=== PATIENT | female | born 1955 | race Caucasian/White ===

== ENCOUNTER 2017-07-21 07:29 | Inpatient (IN) | payer BC ==
[2017-07-21] VITALS (11 sets, daily range): BP systolic 119–174; BP diastolic 65–82; PULSE 54–76; RESP 15–18; TEMP 97.3–98.1; O2SAT 95–100
[~2017-07-21] VITALS: Ht 177.8 cm; Wt 100.9 kg
[2017-07-21] MEDS ORDERED: SODIUM CHLOR 0.9% 1000 ML INJ 1,000 ML IV ONE (07:41)
--- NOTE | 2017-07-21 07:50 | PD ---
HPI Chief Complaint: Neuro Symptoms/ Deficits Time Seen by Provider: 07:38 Travel History International Travel<30 days: No Contact w/Intl Traveler<30days: No Traveled to known affect area: No History of Present Illness HPI 62 y/o female presents stating at 5 AM this morning she woke up with a mild headache and then at 6:30 AM she developed heaviness to her right hand and difficulty with movement of that arm. She states she also feels like she is having a funny feeling in her throat feels weird when she swallows. She states that her symptoms are improving and now she just has a feeling in her arm and her throat but the movement portion has improved. Her gave her aspirin prior to arrival. She denies prior history of this. Quality is heavy. Location is right arm and throat. She denies specific modifying factors. Duration is a little over an hour. She denies any other concurrent complaints. [facility] Past Medical History High Cholesterol: Yes Past Surgical History Surgical History: No Previous Surgery Social History Tobacco Use: No Allergies-Medications (Allergen,Severity, Reaction): Coded Allergies: codeine (Verified Allergy, Unknown, 07/21/17) Reported Meds & Prescriptions Reported Meds & Active Scripts Active Reported Simvastatin 20 Mg Tab 20 Mg PO DAILY [Premarin Patch] Review of Systems Except as stated in HPI: all other systems reviewed are Neg Physical Exam Narrative GENERAL: 62-year-old female in no apparent distress SKIN: Focused skin assessment warm/dry. HEAD: Atraumatic. Normocephalic. EYES: Pupils equal and round. No scleral icterus. No injection or drainage. ENT: No nasal bleeding or discharge. Mucous membranes pink and moist. NECK: Trachea midline. CARDIOVASCULAR: Regular rate and rhythm. No murmur appreciated. RESPIRATORY: No accessory muscle use. Clear to auscultation. Breath sounds equal bilaterally. GASTROINTESTINAL: Abdomen soft, non-tender, nondistended. MUSCULOSKELETAL: No obvious deformities. No clubbing. No cyanosis. NEUROLOGICAL: Awake and alert. No obvious cranial nerve deficits. Mild decreased grasp on the right otherwise nonfocal exam. Normal speech. No pronator drift, no facial droop PSYCHIATRIC: Appropriate mood and affect; insight and judgment normal. Data Data Last Documented VS Vital Signs Date Time Temp Pulse Resp B/P (MAP) Pulse Ox O2 Delivery O2 Flow Rate FiO2 07/21/17 08:44 68 18 147/82 (103) 100 Room Air 07/21/17 07:32 97.3 Orders Orders Activity Bed Rest (07/21/17 ) Electrocardiogram (07/21/17 ) Prothrombin Time / Inr (Pt) (07/21/17 07:41) Act Partial Throm Time (Ptt) (07/21/17 07:41) Complete Blood Count With Diff (07/21/17 07:41) Fibrinogen (07/21/17 07:41) Creatine Kinase (Cpk) (07/21/17 07:41) Troponin I (07/21/17 07:41) Ua Includes Microscopic (07/21/17 07:41) Type And Screen (07/21/17 07:41) Ct Brain W/O Iv Contrast(Rout) (07/21/17 ) Chest, Single Ap (07/21/17 ) Blood Glucose (07/21/17 07:41) Ecg Monitoring (07/21/17 07:41) Nursing Bedside Swallow Assess .ONCE (07/21/17 07:41) Iv Access Insert/Monitor (07/21/17 07:41) NPO (07/21/17 07:41) Sodium Chlor 0.9% 1000 Ml Inj (Ns 1000 M (07/21/17 07:41) Comprehensive Metabolic Panel (07/21/17 07:41) I-Stat Profile (07/21/17 07:44) Cta Brain W Iv Contrast W 3d (07/21/17 07:44) Cta Neck W Iv Contrast W 3d (07/21/17 07:44) Iodixanol 320 Inj (Rad Ct) (Visipaque 32 (07/21/17 08:22) Admit Order (Ed Use Only) (07/21/17 09:13) Labs Laboratory Tests Test 07/21/17 07:48 07/21/17 08:37 White Blood Count 7.4 TH/MM3 Red Blood Count 5.09 MIL/MM3 Hemoglobin 15.1 GM/DL Bedside Hemoglobin 15.6 G/DL Hematocrit 45.3 % Bedside Hematocrit 46.0 % Mean Corpuscular Volume 89.0 FL Mean Corpuscular Hemoglobin 29.6 PG Mean Corpuscular Hemoglobin Concent 33.3 % Red Cell Distribution Width 13.9 % Platelet Count 222 TH/MM3 Mean Platelet Volume 9.7 FL Neutrophils (%) (Auto) 57.5 % Lymphocytes (%) (Auto) 32.1 % Monocytes (%) (Auto) 8.2 % Eosinophils (%) (Auto) 1.7 % Basophils (%) (Auto) 0.5 % Neutrophils # (Auto) 4.2 TH/MM3 Lymphocytes # (Auto) 2.4 TH/MM3 Monocytes # (Auto) 0.6 TH/MM3 Eosinophils # (Auto) 0.1 TH/MM3 Basophils # (Auto) 0.0 TH/MM3 CBC Comment DIFF FINAL Differential Comment Prothrombin Time 10.4 SEC Prothromb Time International Ratio 1.0 RATIO Activated Partial Thromboplast Time 25.1 SEC Fibrinogen 303 mg/dL Bedside Sodium 139 MMOL/L Blood Urea Nitrogen 11 MG/DL Creatinine 0.81 MG/DL Random Glucose 115 MG/DL Total Protein 7.3 GM/DL Albumin 3.8 GM/DL Calcium Level 8.7 MG/DL Alkaline Phosphatase 91 U/L Aspartate Amino Transf (AST/SGOT) 28 U/L Alanine Aminotransferase (ALT/SGPT) 38 U/L Total Bilirubin 0.9 MG/DL Sodium Level 140 MEQ/L Potassium Level 3.6 MEQ/L Chloride Level 107 MEQ/L Carbon Dioxide Level 25.5 MEQ/L Bedside Potassium 3.6 MMOL/L Bedside Chloride 102 MMOL/L Anion Gap 8 MEQ/L Bedside Blood Urea Nitrogen 12 MG/DL Bedside Creatinine 0.7 MG/DL Estimat Glomerular Filtration Rate 72 ML/MIN Bedside Glucose 118 MG/DL Total Creatine Kinase 135 U/L Troponin I LESS THAN 0.02 NG/ML Urine Color LIGHT-YELLOW Urine Turbidity CLEAR Urine pH 8.0 Urine Specific [place] 1.022 Urine Protein NEG mg/dL Urine Glucose (UA) NEG mg/dL Urine Ketones NEG mg/dL Urine Occult Blood NEG Urine Nitrite NEG Urine Bilirubin NEG Urine Urobilinogen LESS THAN 2.0 MG/DL Urine Leukocyte Esterase NEG Urine WBC LESS THAN 1 /hpf Urine Squamous Epithelial Cells <1 /hpf MDM Medical Decision Making Medical Screen Exam Complete: Yes Emergency Medical Condition: Yes Medical Record Reviewed: Yes (Past history confirmed) Interpretation(s) CBC & BMP Diagram 07/21/17 07:48 Total Protein 7.3, Albumin 3.8, Calcium Level 8.7, Alkaline Phosphatase 91, Aspartate Amino Transf (AST/SGOT) 28, Alanine Aminotransferase (ALT/SGPT) 38, Total Bilirubin 0.9 Last 24 hours Impressions Neck CTA 07/21/1744 Signed Impressions: Service Date/Time: July 07:50 - CONCLUSION: Negative exam. Arch and cervical vessels are patent throughout. No significant atherosclerotic disease. Salvador Nobles MD Head CTA 07/21/1744 Signed Impressions: Service Date/Time: July 07:50 - CONCLUSION: 1. Unremarkable CT angiography of the brain. Michelet Cavazos MD Head CT 07/21/17 0000 Signed Impressions: Service Date/Time: July 07:50 - CONCLUSION: 1. No evidence of hemorrhage 2. Possible tiny ischemic infarct left parietal region Michelet Cavazos MD ADDENDUM: The findings were discussed with at 0800 Michelet Cavazos MD Chest X-Ray 07/21/17 0000 Signed Impressions: Service Date/Time: July 08:18 - CONCLUSION: Hypoinflation with no acute cardiopulmonary process. Salvador Nobles MD Differential Diagnosis Stroke, bleed, complex migraine, mass Narrative Course Will check stroke workup and discuss with neurology given window patient and family updated, already received aspirin, patient notes symptoms are continuing to improve, agrees to admit Physician Communication Physician Communication dr ledesma states given improvement of symptoms not candidate for TPA but would like stroke alert and CTAs to rule out large clot resident team agree to admit Diagnosis Primary Impression: Right hand weakness Admitting Information Admitting Physician Requests: Admit Karen Salas MD Jul 21, 2017 07:50
[2017-07-21] MEDS ORDERED: PREMARIN PATCH (08:01)
[2017-07-21] MEDS ORDERED: ATOR20TA15 PO (08:01)
[2017-07-21 08:03] LABS: AUTOMATED NEUTROPHIL # 4.2 TH/MM3 (1.8-7.7); BASOPHIL % 0.5 % (0.0-2.0); EOSINOPHIL # 0.1 TH/MM3 (0-0.4); EOSINOPHIL % 1.7 % (0.0-4.0); HEMATOCRIT 45.3 % (35.0-46.0); HEMOGLOBIN 15.1 GM/DL (11.6-15.3); LYMPH % 32.1 % (9.0-44.0); LYMPHOCYTE # 2.4 TH/MM3 (1.0-4.8); MEAN CORPUSCULAR HEMOGLOBIN 29.6 PG (27.0-34.0); MEAN CORPUSCULAR HGB CONC 33.3 % (32.0-36.0); MEAN PLATELET VOLUME 9.7 FL (7.0-11.0); MONO % 8.2 % (0.0-8.0); MONOCYTE # 0.6 TH/MM3 (0-0.9); NEUT % 57.5 % (16.0-70.0); PLATELET COUNT 222 TH/MM3 (150-450); RED BLOOD COUNT 5.09 MIL/MM3 (4.00-5.30); RED CELL DISTRIBUTION WIDTH 13.9 % (11.6-17.2); WHITE BLOOD COUNT 7.4 TH/MM3 (4.0-11.0)
--- NOTE | 2017-07-21 08:05 | RADRPT ---
EXAM DATE/TIME: 07/21/2017 07:50 This report includes an Addendum and supersedes previous reports for this exam. [facility] COMPARISON: No previous studies available for comparison. INDICATIONS : Stroke alert, right upper extremity weakness RADIATION DOSE: 56.35 CTDIvol (mGy) MEDICAL HISTORY : None SURGICAL HISTORY : None. ENCOUNTER: Initial ACUITY: 1 day PAIN SCALE: 0/10 LOCATION: cranial TECHNIQUE: Multiple contiguous axial images were obtained of the head. Using automated exposure control and adj ustment of the mA and/or kV according to patient size, radiation dose was kept as low as reasonably a chievable to obtain optimal diagnostic quality images. DICOM format image data is available electro nically for review and comparison. FINDINGS: There is no evidence of acute hemorrhage, mass effect or midline shift. There is a typical tiny area of infarct measuring less than 10 mm in diameter in the left parietal region. Posterior fossa structu res are unremarkable. Bone windows are unremarkable. CONCLUSION: 1. No evidence of hemorrhage 2. Possible tiny ischemic infarct left parietal region Michelet Cavazos MD on July 21, 2017 at 7:59 Board Certified Radiologist. This report was verified electronically. ADDENDUM: The findings were discussed with at 0800 Michelet Cavazos MD on July 21, 2017 at 8:06 Board Certified Radiologist. This report was verified electronically.
[2017-07-21] MEDS ORDERED: SIMV20TA PO (08:08)
[2017-07-21 08:16] LABS: PROTHROMBIN TIME - PATIENT 10.4 SEC (9.8-11.6)
[2017-07-21] MEDS ORDERED: IODIXANOL 320 MG/ML 10 ML VIAL (for Rad CT) IVCONTRAST ONE (08:22)
[2017-07-21 08:26] LABS: ALBUMIN 3.8 GM/DL (3.4-5.0); ALKALINE PHOSPHATASE 91 U/L (45-117); ALT (GPT) 38 U/L (10-53); AST (GOT) 28 U/L (15-37); BICARBONATE 25.5 MEQ/L (21.0-32.0); BLOOD UREA NITROGEN 11 MG/DL (7-18); CALCIUM 8.7 MG/DL (8.5-10.1); CHLORIDE 107 MEQ/L (98-107); CREATININE 0.81 MG/DL (0.50-1.00); GLOMERULAR FILTRATION RATE 72 ML/MIN (>89); GLUCOSE,RANDOM 115 MG/DL (74-106); SODIUM (NA) 140 MEQ/L (136-145); TOTAL BILIRUBIN ADULT 0.9 MG/DL (0.2-1.0); TOTAL PROTEIN 7.3 GM/DL (6.4-8.2); TROPONIN I LESS THAN 0.02 NG/ML (0.02-0.05)
--- NOTE | 2017-07-21 08:36 | RADRPT ---
EXAM DATE/TIME: 07/21/2017 08:18 [facility] COMPARISON: No previous studies available for comparison. INDICATIONS : Stroke alert. MEDICAL HISTORY : None. SURGICAL HISTORY : None. ENCOUNTER: Initial ACUITY: 1 day PAIN SCORE: 0/10 LOCATION: Bilateral chest FINDINGS: A single view of the chest demonstrates the lungs to be symmetrically hypoaerated without evidence of mass, infiltrate or effusion. Accounting for low lung volumes, heart size is upper limits of normal. Osseous structures are intact. CONCLUSION: Hypoinflation with no acute cardiopulmonary process. Salvador Nobles MD on July 21, 2017 at 8:32 Board Certified Radiologist. This report was verified electronically.
--- NOTE | 2017-07-21 08:38 | RADRPT ---
EXAM DATE/TIME: 07/21/2017 07:50 [facility] COMPARISON: No previous studies available for comparison. INDICATIONS : Stroke alert, right upper extremity weakness IV CONTRAST: 80 cc Visipaque (iodixanol) IV RADIATION DOSE: 9.75 CTDIvol (mGy) MEDICAL HISTORY : None SURGICAL HISTORY : None. ENCOUNTER: Initial ACUITY: 1 day PAIN SCALE: 0/10 LOCATION: cranial TECHNIQUE: Volumetric scanning was performed using a multi-row detector CT scanner. The data was post processed with a variety of visualization algorithms including full volume maximum intensity projection, multi -planar sliding thin slab reformation, curved planar reformation, and surface rendering techniques. Using automated exposure control and adjustment of the mA and/or kV according to patient size, radiat ion dose was kept as low as reasonably achievable to obtain optimal diagnostic quality images. DICO M format image data is available electronically for review and comparison. FINDINGS: There is excellent visualization of the major intracranial arteries out to the second-order branch ve ssels. There is no evidence for aneurysm, vessel truncation or stenosis, and no evidence for vascula r malformation. Examination of posterior fossa also demonstrates no evidence of aneurysm or vascular malformation. Th e vertebral arteries are codominant. CONCLUSION: 1. Unremarkable CT angiography of the brain. Michelet Cavazos MD on July 21, 2017 at 8:30 Board Certified Radiologist. This report was verified electronically.
--- NOTE | 2017-07-21 08:40 | RADRPT ---
EXAM DATE/TIME: 07/21/2017 07:50 [facility] COMPARISON: No previous studies available for comparison. INDICATIONS : Stroke alert, right sided weakness IV CONTRAST: 80 cc Visipaque (iodixanol) IV ; Cumulative dose for multiple exams. RADIATION DOSE: 9.75 CTDIvol (mGy) MEDICAL HISTORY : None SURGICAL HISTORY : None. ENCOUNTER: Initial ACUITY: 1 day PAIN SCALE: 0/10 LOCATION: cranial Elevated flow velocities and ICA/CCA ratios have been found to correlate with increased degrees of vessel stenosis, calculated as percentage of diameter relative to a normal segment of distal ICA/CCA. TECHNIQUE: Volumetric scanning was performed using a multirow detector CT scanner. The data was post processed with a variety of visualization algorithms including full-volume maximum intensity projection, multip lanar sliding thin-slab reformation, curved-planar reformation, and surface-rendering techniques. Us ing automated exposure control and adjustment of the mA and/or kV according to patient size, radiatio n dose was kept as low as reasonably achievable to obtain optimal diagnostic quality images. DICOM f ormat image data is available electronically for review and comparison. FINDINGS: AORTIC ARCH: There is a three-vessel origin of the great vessels from the aorta. No evidence of ostial narrowing. RIGHT CAROTID: The common carotid artery is intact. The carotid bulb has a normal configuration without ulceration o r narrowing. The internal carotid artery lumen is smooth without stenosis. The external carotid kalina ry is intact. LEFT CAROTID: The common carotid artery is intact. The carotid bulb has a normal configuration without ulceration or narrowing. The internal carotid artery lumen is smooth without stenosis. The external carotid ar radha is intact. VERTEBRALS: The vertebral arteries have a symmetric diameter. No stenotic lesions are seen. CONCLUSION: Negative exam. Arch and cervical vessels are patent throughout. No significant atherosclerotic disease. Salvador Nobles MD on July 21, 2017 at 8:36 Board Certified Radiologist. This report was verified electronically.
[2017-07-21 08:57] LABS: BILIRUBIN, URINE NEG (NEG); BLOOD, URINE NEG (NEG); GLUCOSE,URINE NEG (NEG); KETONE, URINE NEG (NEG); NITRITE,URINE NEG (NEG); SQUAMOUS EPITHELIAL CELL URINE <1 /hpf (0-5); URINE COLOR LIGHT-YELLOW (YELLW/STRAW); URINE LEUKOCYTE ESTERASE NEG (NEG)
--- NOTE | 2017-07-21 09:28 | HHI.HP ---
[facility] Service Family Medicine Primary Care Physician Monica Jiang M.D. Admission Diagnosis right arm numbness Diagnoses: International Travel<30 Days: No Contact w/Intl Traveler<30days: No Known Affected Area: No History of Present Illness Patient is a 62 year old female who presents to the ED for evaluation of right- sided upper extremity weakness. Patient reports waking up with a mild right- sided frontal headache around 6 a.m. on 07/21. The headache subsided without intervention. Around 6:30 a.m., the patient was getting ready for work when she noticed that her right arm felt "funny" while applying her make-up. She quickly lost function in her right arm, which felt heavy. At that time, her noted slurred speech and the patient remembers having a hard time moving her mouth. She also felt like her throat started "closing in." The patient's noticed a right-sided facial droop and his 's inability to touch finger to nose. She took two 325mg aspirin and was taken to the ED. Since arriving to the ED, she denies headache and says that her arm feels better. She reports "more feeling" in her arm. She however continues to complain of something in her throat. While the right-side of her tongue is tingling, her speech has returned to normal. Of note, patient denies head trauma or history of stroke. She suffers from menopausal hot flashes. She was treated with [place] patch but after taper has not been on the patch for one week. (Sue Theodore MD R1) Review of Systems Constitutional: COMPLAINS OF: Dizziness (this morning; resolved ), DENIES: Diaphoretic episodes, Fatigue, Fever, Weight gain, Weight loss, Chills Eyes: DENIES: Blurred vision, Diplopia, Vision loss, Double Vision Ears, nose, mouth, throat: COMPLAINS OF: Throat pain (right-side discomfort ), DENIES: Tinnitus, Hearing loss, Nasal discharge, Hoarseness, Running Nose Respiratory: COMPLAINS OF: Cough (over the last few days ), DENIES: Sputum production, Shortness of breath Cardiovascular: COMPLAINS OF: Lower Extremity Edema (swelling around ankles ( baseline)), DENIES: Chest pain, Palpitations, Syncope Gastrointestinal: DENIES: Abdominal pain, Black stools, Bloody stools, Constipation, Diarrhea, Nausea, Vomiting Genitourinary: DENIES: Urinary frequency, Urinary incontinence, Urgency Musculoskeletal: COMPLAINS OF: Joint pain (lower extremity (baseline)), DENIES : Back pain, Neck pain Integumentary: DENIES: Rash, Nail changes Hematologic/lymphatic: COMPLAINS OF: Bruising (easy (baseline)) Neurologic: COMPLAINS OF: Headache, Localized weakness (right arm ), Paresthesias (right hand ), DENIES: Seizures Psychiatric: COMPLAINS OF: Anxiety, Depression (Sue Theodore MD R1) Past Family Social History Past Medical History Anxiety Depression Hyperlipidemia History of low blood pressure and bradycardia - not being followed Past Surgical History Breast biopsies x2 Removal of cysts on ovaries Endometrial ablation Reported Medications Flonase Nasal [place] (Fluticasone Nasal Liberty) 50 Mcg/Act [place] 50 Mcg EACH NARE DAILY Simvastatin 20 Mg Tab 20 Mg PO DAILY (Sue Theodore MD R1) Allergies: Coded Allergies: codeine (Verified Allergy, Unknown, 07/21/17) Active Ordered Medications Current Medications Medications (Trade) Dose Ordered Sig/Kevin Route Start Time Stop Time Status Last Admin Sodium Chloride 1,000 ml @ 70 mls/hr [id number] ONCE IV 07/21/17 07:41 07/21/17 21:58 07/21/17 08:21 (Pravachol) 40 mg HS PO 07/21/17 21:00 (NS Flush) 2 ml BID IV FLUSH 07/21/17 10:30 (NS Flush) 2 ml UNSCH PRN IV FLUSH 07/21/17 10:30 Sodium Chloride 1,000 ml @ 70 mls/hr [id number] IV 07/21/17 10:29 (Vasotec Inj) 1.25 mg Q4H PRN IV PUSH 07/21/17 10:30 (Aspirin) 325 mg DAILY PO 07/21/17 10:30 07/21/17 12:16 (NovoLOG SUPPLEMENTAL SCALE) 1 ACHS SQ 07/21/17 12:00 (D50w (Vial) Inj) 50 ml UNSCH PRN IV PUSH 07/21/17 10:30 (Glucagon Inj) 1 mg UNSCH PRN OTHER 07/21/17 10:30 (Lovenox Inj) 40 mg Q24H SQ 07/21/17 10:30 07/21/17 12:16 (Zofran Inj) 4 mg Q6H PRN IV PUSH 07/21/17 15:00 07/21/17 14:33 Family History Mother - [place], AAA, HTN, DM Type II, carotid artery stenosis Father - Brain cancer Brother - [place] at 43 y/o Social History Lives with of 44 years. Alcohol: minimal. Tobacco: denies; never. Drug: denies; never. (Sue Theodore MD R1) Physical Exam Vital Signs Vital Signs Date Time Temp Pulse Resp B/P (MAP) Pulse Ox O2 Delivery O2 Flow Rate FiO2 07/21/17 08:44 68 18 147/82 (103) 100 Room Air 07/21/17 07:45 76 18 159/75 (103) 98 Room Air 07/21/17 07:42 73 18 97 Room Air 07/21/17 07:32 97.3 74 16 174/82 (112) 96 Physical Exam GENERAL: This is a well-nourished, well-developed patient, in no apparent distress. Patient laying with bed flat. SKIN: No rashes, ecchymoses or lesions. Warm and dry. HEAD/FACE: Atraumatic. Normocephalic. No temporal or scalp tenderness. Facial asymmetry noted with slight droop of right corner of lip. EYES: Pupils equal round and reactive. Extraocular motions intact. No scleral icterus. No injection or drainage. ENT: Nose without bleeding, purulent drainage or septal hematoma. Throat without erythema, tonsillar hypertrophy or exudate. Uvula midline. Airway patent. NECK: Trachea midline. No JVD or lymphadenopathy. Supple, nontender, no meningeal signs. CARDIOVASCULAR: Bradycardic with regular rhythm; no murmurs, gallops, or rubs. RESPIRATORY: Clear to auscultation anteriorly. No wheezes, rales, or rhonchi. GASTROINTESTINAL: Abdomen soft, non-tender, nondistended. No hepato-splenomegaly , or palpable masses. No guarding. MUSCULOSKELETAL: Extremities without clubbing, cyanosis, or edema. No joint tenderness, effusion, or edema noted. No calf tenderness. Negative Homans sign bilaterally. NEUROLOGICAL: Awake and alert. Cranial nerves II through XII intact except for facial droop noted above. Motor and sensory to light touch within normal limits. Five out of 5 muscle strength in all muscle groups. Cerebellar testing normal. Normal speech. Laboratory Laboratory Tests Test 07/21/17 07:48 07/21/17 08:37 White Blood Count 7.4 Red Blood Count 5.09 Hemoglobin 15.1 Bedside Hemoglobin 15.6 Hematocrit 45.3 Bedside Hematocrit 46.0 Mean Corpuscular Volume 89.0 Mean Corpuscular Hemoglobin 29.6 Mean Corpuscular Hemoglobin Concent 33.3 Red Cell Distribution Width 13.9 Platelet Count 222 Mean Platelet Volume 9.7 Neutrophils (%) (Auto) 57.5 Lymphocytes (%) (Auto) 32.1 Monocytes (%) (Auto) 8.2 Eosinophils (%) (Auto) 1.7 Basophils (%) (Auto) 0.5 Neutrophils # (Auto) 4.2 Lymphocytes # (Auto) 2.4 Monocytes # (Auto) 0.6 Eosinophils # (Auto) 0.1 Basophils # (Auto) 0.0 CBC Comment DIFF FINAL Differential Comment Prothrombin Time 10.4 Prothromb Time International Ratio 1.0 Activated Partial Thromboplast Time 25.1 Fibrinogen 303 Bedside Sodium 139 Blood Urea Nitrogen 11 Creatinine 0.81 Random Glucose 115 Total Protein 7.3 Albumin 3.8 Calcium Level 8.7 Alkaline Phosphatase 91 Aspartate Amino Transf (AST/SGOT) 28 Alanine Aminotransferase (ALT/SGPT) 38 Total Bilirubin 0.9 Sodium Level 140 Potassium Level 3.6 Chloride Level 107 Carbon Dioxide Level 25.5 Bedside Potassium 3.6 Bedside Chloride 102 Anion Gap 8 Bedside Blood Urea Nitrogen 12 Bedside Creatinine 0.7 Estimat Glomerular Filtration Rate 72 Bedside Glucose 118 Total Creatine Kinase 135 Troponin I LESS THAN 0.02 Urine Color LIGHT-YELLOW Urine Turbidity CLEAR Urine pH 8.0 Urine Specific Hematite 1.022 Urine Protein NEG Urine Glucose (UA) NEG Urine Ketones NEG Urine Occult Blood NEG Urine Nitrite NEG Urine Bilirubin NEG Urine Urobilinogen LESS THAN 2.0 Urine Leukocyte Esterase NEG Urine WBC LESS THAN 1 Urine Squamous Epithelial Cells <1 (Sue Theodore MD R1) Result Diagram: 07/21/1748 07/21/17747 Imaging Last 72 hours Impressions Neck CTA 07/21/17743 Signed Impressions: Service Date/Time: July 07:50 - CONCLUSION: Negative exam. Arch and cervical vessels are patent throughout. No significant atherosclerotic disease. Salvador Nobles MD Head CTA 07/21/1744 Signed Impressions: Service Date/Time: July 07:50 - CONCLUSION: 1. Unremarkable CT angiography of the brain. Michelet Cavazos MD Head CT 07/21/17 Signed Impressions: Service Date/Time: July 07:50 - CONCLUSION: 1. No evidence of hemorrhage 2. Possible tiny ischemic infarct left parietal region Michelet Cavazos MD ADDENDUM: The findings were discussed with at 0800 Michelet Cavazos MD Chest X-Ray 07/21/17 Signed Impressions: Service Date/Time: July 08:18 - CONCLUSION: Hypoinflation with no acute cardiopulmonary process. Salvador Nobles MD Brain MRI 07/21/17 Signed Impressions: Service Date/Time: July 17:44 - CONCLUSION: 1. Tiny subcentimeter acute to subacute infarct in the left periventricular white matter. Augusto Lundy MD (Sue Theodore MD R1) Caprini VTE Risk Assessment Caprini VTE Risk Assessment: Mod/High Risk (score >= 2) Caprini Risk Assessment Model Point Value = 1 Point Value = 2 Point Value = 3 Point Value = 5 Age 41-60 Minor surgery BMI > 25 kg/m2 Swollen legs Varicose veins or History of unexplained or recurrent spontaneous Oral contraceptives or hormone replacement Sepsis (< 1 month) Serious lung disease, including pneumonia (< 1 month) Abnormal pulmonary function Acute myocardial infarction Congestive heart failure (< 1 month) History of inflammatory bowel disease Medical patient at bed rest Age 61-74 Arthroscopic surgery Major open surgery (> 45 min) Laparoscopic surgery (> 45 min) Malignancy Confined to bed (> 72 hours) Immobilizing plaster cast Central venous access Age >= 75 History of VTE Family history of VTE Factor V Leiden Prothrombin [id number] Lupus anticoagulant Anticardiolipin antibodies Elevated serum homocysteine Heparin-induced thrombocytopenia Other congenital or acquired thrombophilia Stroke (< 1 month) Elective arthroplasty Hip, pelvis, or leg fracture Acute spinal cord injury (< 1 month) Prophylaxis Regimen Total Risk Factor Score Risk Level Prophylaxis Regimen 0-1 Low Early ambulation 2 Moderate Order ONE of the following: *Sequential Compression Device (SCD) *Heparin 5000 units SQ BID 3-4 Higher Order ONE of the following medications: *Heparin 5000 units SQ TID *Enoxaparin/Lovenox 40 mg SQ daily (WT < 150 kg, CrCl > 30 mL/min) *Enoxaparin/Lovenox 30 mg SQ daily (WT < 150 kg, CrCl > 10-29 mL/min) *Enoxaparin/Lovenox 30 mg SQ BID (WT < 150 kg, CrCl > 30 mL/min) AND/OR *Sequential Compression Device (SCD) 5 or more Highest Order ONE of the following medications: *Heparin 5000 units SQ TID (Preferred with Epidurals) *Enoxaparin/Lovenox 40 mg SQ daily (WT < 150 kg, CrCl > 30 mL/min) *Enoxaparin/Lovenox 30 mg SQ daily (WT < 150 kg, CrCl > 10-29 mL/min) *Enoxaparin/Lovenox 30 mg SQ BID (WT < 150 kg, CrCl > 30 mL/min) AND *Sequential Compression Device (SCD) (Sue Theodore MD R1) Assessment and Plan Assessment and Plan Patient is a 62 year old female who presents to the ED for evaluation of right- sided upper extremity weakness. On admission, CT head reads possible tiny ischemic infarct left parietal region. Admitted for evaluation and management of TIA/Stroke. Code Status Full code. Discussed Condition With Drs. Sahu and Nicolette. (Sue Theodore MD R1) Attending Attestation Patient seen and examined, discussed with resident team. I agree with assessment and management as documented and discussed with me. The patient has been seen and examined. The chart and all resident notes have been reviewed. I agree that inpatient care is appropriate and that a two midnight stay is expected for the reasons documented in the resident history and physical. I have discussed this with the resident and certify the resident s order for inpatient admission. Pt is admitted for a small stroke. At the time of my exam, in the afternoon, right facial droop (mild) is noted. She feels her speech is back to normal. Sister at bedside confirms this. Continue head of bed flat, await studies (MRI, echo). Reviewed results of CT and CTAs. Discussed importance of stroke prevention with aspirin and chronic disease management. Additional diagnosis: Bradycardia: Asymptomatic. Will order holter monitor at discharge. 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 Clinical presentation correlates with CT head findings of possible ischemic infarct over parietal lobe. Symptoms resolved at time of admission encounter. Labs/Microbiology On admission: * WBC 7.4, Hgb 15.1, Hct 45.3, Plt Count 222. * Na 140, K 3.6. * Random glucose 115. * AST 28, ALT 38, Alk Phos 91. * Total Creatine Kinase 135. * CK-MB 1.6. Repeat 1.4. * Troponin x3 negative. * PT 10.4, INR 1.0, APTT 25.1, Fibrinogen 303. * UA: light-yellow, clear, pH 8, nitrite negative, leukocyte esterase negative. * Lipid panel pending. * Hemoglobin A1C pending. Imaging/Studies: * Chest X-ray: Hypoinflation with no acute cardiopulmonary process. * CT Brain: No evidence of hemorrhage. Possible tiny ischemic infarct left parietal region. * Head CTA: Unremarkable CT angiography of the brain. * Neck CTA: Negative exam. Arch and cervical vessels are patent throughout. No significant atherosclerotic disease. * Brain MRI: Tiny subcentimeter acute to subacute infarct in the left periventricular white matter. * EKG: SINUS BRADYCARDIA WITH SINUS ARRHYTHMIA BORDERLINE ECG. * EKG: WITH OCCASIONAL VENTRICULAR PREMATURE COMPLEXES BORDERLINE ECG. * Echo: * LEFT VENTRICLE: Normal left ventricular size and wall thickness. The left ventricular systolic function is normal with an estimated ejection fraction in the range of 60-65%. Normal wall motion. * RIGHT VENTRICLE: Normal right ventricular size and systolic function. * LEFT ATRIUM: The left atrial size is normal. * RIGHT ATRIUM: The right atrial size is normal. * ATRIAL SEPTUM: Normal atrial septal thickness without atrial level shunting by limited color Doppler interrogation. * AORTA: The aortic root and proximal ascending aorta are normal in size on limited imaging. * MITRAL VALVE: Mild bileaflet mitral valve prolapse. Trace mitral valve regurgitation. * AORTIC VALVE: Trileaflet aortic valve. No aortic valve stenosis or regurgitation. * TRICUSPID VALVE: Structurally normal tricuspid valve. There is mild tricuspid valve regurgitation. The estimated pulmonary arterial pressure is 36 mmHg. * PULMONARY VALVE: Trivial pulmonary valve regurgitation. * VESSELS: The inferior vena cava is normal in size. * PERICARDIUM; No pericardial effusion. Medications: * Continue home Pravastatin 40mg PO HS. * Aspirin 325mg PO daily. Orders: * Speech Swallow Eval - passed. * Heart Healthy Diet. * Bed rest with HOB flat for 12 hours. May elevate HOB 30 degrees for all meals to prevent aspiration. After 12 hours, OOB ad rod. * Consult Neurology. * Consult Stroke Navigator. * Consult PT. * Consult Case Management. (2) Hyperlipidemia ICD Codes: E78.5 - Hyperlipidemia, unspecified Status: Chronic Plan: Patient with history of hyperlipidemia. * See Plan for Ischemic stroke. (3) Fluid, Electrolyte, Nutrition, and Prophylaxis Status: Acute Plan: Fluid: * NS at 70 mls/hr. Electrolyte: * Monitor and replete as necessary. Nutrition: * Heart healthy diet. Prophylaxis: * SCDs. * Lovenox 40mg IV daily. (Sue Theodore MD R1) Sue Theodore MD R1 Jul 21, 2017 09:28 Savannah Sahu MD Jul 22, 2017 20:47
[2017-07-21] MEDS ORDERED: FLUT1SPR5 EACH NARE (09:48)
[2017-07-21] MEDS: SODIUM CHLOR 0.9% 1000 ML INJ 1,000 ML IV SCH ×2 (10:29→23:40)
[2017-07-21] MEDS ORDERED: GLUCAGON 1 MG/ML VIAL OTHER PRN (10:30)
[2017-07-21] MEDS: SODIUM CHLORIDE 0.9% FLUSH 10 ML FLUSH IV FLUSH SCH ×2 (10:30→21:54)
[2017-07-21] MEDS ORDERED: DEXTROSE 50% IN WATER 50 ML VIAL(D50) IV PUSH PRN (10:30)
[2017-07-21] MEDS ORDERED: SODIUM CHLORIDE 0.9% FLUSH 10 ML FLUSH IV FLUSH PRN (10:30)
[2017-07-21] MEDS ORDERED: ENALAPRILAT 1.25 MG/ML VIAL IV PUSH PRN (10:30)
[2017-07-21] MEDS: INSULIN ASPART SUPPLEMENTAL SCALE SQ SCH ×3 (12:00→21:00)
[2017-07-21] MEDS: ENOXAPARIN SODIUM 40 MG/0.4 ML SYRINGE SQ SCH (12:16)
[2017-07-21] MEDS: ASPIRIN 325 MG TAB PO SCH (12:16)
--- NOTE | 2017-07-21 13:26 | MB ---
cc: Laney Leo MD DATE: 07/21/2017 REASON FOR CONSULTATION: Stroke alert. HISTORY OF PRESENT ILLNESS: This is a pleasant 62-year-old woman with a chief complaint of sudden onset of headache, right-sided frontal at 5 a.m. and then later at 6:30. She was getting ready for work and had trouble putting makeup on. Her arm felt funny on the right side, heavy, some speech issues and may be felt a little bit in the leg. At 6:40 in the morning, she took 2 aspirins, came to the ED, arm felt better, just feels a little strange still. The tongue and speech normalized. Hence, due to her symptoms rapidly improving, she was not a candidate for TPA. She is currently in room 1535. She feels a little nauseated, but otherwise no new complaints. PAST MEDICAL HISTORY: Anxiety, depression, hyperlipidemia, history of low blood pressure and bradycardia. PAST SURGICAL HISTORY: Cyst removal ovaries, breast biopsies x 2, endometrial ablation. ALLERGIES: CODEINE. FAMILY HISTORY: Mother had [place], AAA, hypertension, diabetes, carotid stenosis. Father had brain cancer. Brother [place] at 43. SOCIAL HISTORY: She lives with her . Minimal alcohol. No tobacco. No drugs. PHYSICAL EXAM: VITAL SIGNS: Temperature is 97.9, pulse 54, respiratory rate 18, blood pressure 139/81, saturating at 96 percent on room air. NECK: Supple, no bruits. HEART: Regular. NEUROLOGIC: She is awake and alert. She is oriented and fluent. Pupils reactive. Visual gaona full. Face symmetrical. Tongue midline. Motor raza, there is no drift, no leg lag. Cerebellar testing normal. DTRs are 1+. Sensory seems to be intact to light touch, temperature and pain. Toes, withdraws. Cerebellar, normal. Gait is withheld. LABORATORY DATA: Reviewed. Her CBC is really unremarkable. The coag panel was normal. Chemistries: Glucose 115-118. Cardiac enzymes normal. Urine unremarkable. IMAGING: Head CTA unremarkable. Neck CTA negative for any disease. CT brain, no evidence of any hemorrhage, possible small infarct, left parietal region. Chest x-ray, hypoinflation. IMPRESSION: Stroke versus transient ischemic attack in a previously fairly healthy 62-year-old woman. Questionable bradycardia. RECOMMENDATIONS: Recommend getting an MRI of the brain with 2-D echo, hemoglobin A1c, fasting lipid panel, start her on aspirin therapy full dose 325 mg. She was placed on a statin as well 40 mg. PT, OT, speech therapy evaluation. Permissible hypertension. Increase her head of bed tomorrow morning as tolerated. Keep her flat except for meals today. If her workup is negative and she is back to baseline, recommend discharge with followup with neurology. She may benefit from having a prolonged Holter event monitor to monitor this bradycardia since she has not been followed by cardiology. Continue Lovenox for DVT prophylaxis as well as SCDs. Laney Leo MD DF/DL , 01:00 PM , 01:25 PM
--- NOTE | 2017-07-21 13:43 | EKG ---
Date Performed: 07/21/2017 Time Performed: 07:47:30 PTAGE: 62 years EKG: SINUS BRADYCARDIA WITH SINUS ARRHYTHMIA BORDERLINE ECG NO PREVIOUS TRACING DOCTOR: Sayda Morton Interpretating Date/Time 07/21/2017 13:40:10
[2017-07-21 14:41] LABS: TROPONIN I LESS THAN 0.02 NG/ML (0.02-0.05)
[2017-07-21] MEDS ORDERED: ONDANSETRON HCL 4 MG/2 ML VIAL IV PUSH PRN (15:00)
[2017-07-21 17:47] LABS: TROPONIN I LESS THAN 0.02 NG/ML (0.02-0.05)
--- NOTE | 2017-07-21 18:15 | RADRPT ---
EXAM DATE/TIME: 07/21/2017 17:44 [facility] COMPARISON: No previous studies available for comparison. INDICATIONS : CVA. MEDICAL HISTORY : None. SURGICAL HISTORY : Breast biopsy and ovarian cyst removal. ENCOUNTER: Initial ACUITY: 1 day PAIN SCORE: 0/10 LOCATION: Head. TECHNIQUE: Multiplanar, multisequence MRI of the brain was performed without contrast. FINDINGS: CEREBRUM: There is a small subcentimeter lacune infarct left periventricular white matter. No other infarction identified. No mass effect or midline shift. No hydrocephalus. WHITE MATTER: No significant signal abnormalities are seen in the white matter. POSTERIOR FOSSA: The cerebellum and brainstem are intact. The 4th ventricle is midline. The cerebellopontine angle is unremarkable. The cerebellar tonsils are normal in position. DIFFUSION IMAGING: No focal areas of restricted diffusion are seen. No evidence of acute infarction. EXTRACRANIAL: The visualized portions of the orbits and paranasal sinuses are unremarkable. CONCLUSION: 1. Tiny subcentimeter acute to subacute infarct in the left periventricular white matter. Augusto Lundy MD on July 21, 2017 at 18:10 Board Certified Radiologist. This report was verified electronically.
--- NOTE | 2017-07-21 19:13 | ECHRPT ---
Indication: CVA/TIA CONCLUSIONS Normal left ventricular size and wall thickness. The left ventricular systolic function is normal wi th an estimated ejection fraction in the range of 60-65%. Normal wall motion. Mild bileaflet mitral valve prolapse. Trace mitral valve regurgitation. There is mild tricuspid valve regurgitation. The estimated pulmonary arterial pressure is 36 mmHg. BP: / HR: 58 Rhythm: Sinus MEASUREMENTS (Male / Female) Normal Values Technical Quality:Technically difficult study 2D ECHO LV Diastolic Diameter PLAX 4.5 cm 4.2 - 5.9 / 3.9 - 5.3 cm LV Systolic Diameter PLAX 3.4 cm IVS Diastolic Thickness 1.0 cm 0.6 - 1.0 / 0.6 - 0.9 cm LVPW Diastolic Thickness 1.0 cm 0.6 - 1.0 / 0.6 - 0.9 cm LV Relative Wall Thickness 0.4 RV Internal Dim ED PLAX 4.5 cm LVOT Diameter 2.0 cm LA Systolic Diameter LX 4.3 cm 3.0 - 4.0 / 2.7 - 3.8 cm M-MODE Aortic Root Diameter MM 2.6 cm LA Systolic Diameter MM 4.4 cm LA Ao Ratio MM 1.7 AV Cusp Separation MM 2.3 cm DOPPLER AV Peak Velocity 141.0 cm/s AV Peak Gradient 8.0 mmHg LVOT Peak Velocity 107.0 cm/s LVOT Peak Gradient 4.6 mmHg AV Area Cont Eq pk 2.4 cm MV Area PHT 2.4 cm Mitral E Point Velocity 68.6 cm/s Mitral A Point Velocity 74.0 cm/s Mitral E to A Ratio 0.9 LV E' Lateral Velocity 11.4 cm/s Mitral E to LV E' Lateral Ratio 6.0 LV E' Septal Velocity 5.9 cm/s Mitral E to LV E' Septal Ratio 11.7 TR Peak Velocity 255.0 cm/s TR Peak Gradient 26.0 mmHg Right Atrial Pressure 10.0 mmHg Pulmonary Artery Systolic Pressu 36.0 mmHg Right Ventricular Systolic Press 36.0 mmHg FINDINGS LEFT VENTRICLE Normal left ventricular size and wall thickness. The left ventricular systolic function is normal wi th an estimated ejection fraction in the range of 60-65%. Normal wall motion. RIGHT VENTRICLE Normal right ventricular size and systolic function. LEFT ATRIUM The left atrial size is normal. RIGHT ATRIUM The right atrial size is normal. ATRIAL SEPTUM Normal atrial septal thickness without atrial level shunting by limited color doppler interrogation. AORTA The aortic root and proximal ascending aorta are normal in size on limited imaging. MITRAL VALVE Mild bileaflet mitral valve prolapse. Trace mitral valve regurgitation. AORTIC VALVE Trileaflet aortic valve. No aortic valve stenosis or regurgitation. TRICUSPID VALVE Structurally normal tricuspid valve. There is mild tricuspid valve regurgitation. The estimated pulmonary arterial pressure is 36 mmHg. PULMONARY VALVE Trivial pulmonary valve regurgitation. VESSELS The inferior vena cava is normal in size. PERICARDIUM No pericardial effusion. Jan Jay MD (Electronically Signed) Final Date:21 July 2017 19:12
--- NOTE | 2017-07-21 20:06 | EKG ---
Date Performed: 07/21/2017 Time Performed: 16:57:44 PTAGE: 62 years EKG: Sinus rhythm WITH OCCASIONAL VENTRICULAR PREMATURE COMPLEXES BORDERLINE ECG PREVIOUS TRACING : 07/21/2017 07.47 Compared to previous tracing, PVC's are now present. DOCTOR: Jan Jay Interpretating Date/Time 07/21/2017 20:04:39
[2017-07-21] MEDS ORDERED: PRAVASTATIN SOD 40 MG TAB PO SCH (21:00)
[2017-07-21] MEDS: ACETAMINOPHEN 325 MG TAB PO PRN (23:28)
[2017-07-22] VITALS (8 sets, daily range): BP systolic 100–134; BP diastolic 48–65; PULSE 49–65; RESP 18; TEMP 97.5–98.1; O2SAT 93–97
[2017-07-22 00:04] LABS: CHOLESTEROL 134 MG/DL (120-200); TRIGLYCERIDES 98 MG/DL (42-150)
[2017-07-22 00:07] LABS: CHOLESTEROL/ HDL RATIO 3.28 RATIO; HDL CHOLESTEROL 40.8 MG/DL (40.0-60.0); LDL CHOLESTEROL 74 MG/DL (0-99); TROPONIN I LESS THAN 0.02 NG/ML (0.02-0.05)
--- NOTE | 2017-07-22 05:28 | EKG ---
Date Performed: 07/21/2017 Time Performed: 22:32:20 PTAGE: 62 years EKG: SINUS BRADYCARDIA BORDERLINE ECG PREVIOUS TRACING : 07/21/2017 16.57 Compared to previous tracing, heart rate has slowed. DOCTOR: Jan Jay Interpretating Date/Time 07/22/2017 05:28:10
[2017-07-22] MEDS: ACETAMINOPHEN 325 MG TAB PO PRN (07:12)
[2017-07-22] MEDS: ASPIRIN 325 MG TAB PO SCH (07:38)
[2017-07-22] MEDS: SODIUM CHLORIDE 0.9% FLUSH 10 ML FLUSH IV FLUSH SCH (07:39)
[2017-07-22] MEDS: INSULIN ASPART SUPPLEMENTAL SCALE SQ SCH ×2 (07:39→12:00)
[2017-07-22 08:45] LABS: HEMATOCRIT 43.3 % (35.0-46.0); HEMOGLOBIN 14.4 GM/DL (11.6-15.3); MEAN CELL VOLUME 88.8 FL (80.0-100.0); MEAN CORPUSCULAR HEMOGLOBIN 29.4 PG (27.0-34.0); MEAN CORPUSCULAR HGB CONC 33.1 % (32.0-36.0); PLATELET COUNT 215 TH/MM3 (150-450); RED BLOOD COUNT 4.88 MIL/MM3 (4.00-5.30); WHITE BLOOD COUNT 7.2 TH/MM3 (4.0-11.0)
[2017-07-22] MEDS: ENOXAPARIN SODIUM 40 MG/0.4 ML SYRINGE SQ SCH (09:22)
[2017-07-22 09:27] LABS: ALBUMIN 3.6 GM/DL (3.4-5.0); AST (GOT) 18 U/L (15-37); BICARBONATE 28.4 MEQ/L (21.0-32.0); BLOOD UREA NITROGEN 10 MG/DL (7-18); CALCIUM 8.5 MG/DL (8.5-10.1); CHLORIDE 108 MEQ/L (98-107); CREATININE 0.81 MG/DL (0.50-1.00); GLOMERULAR FILTRATION RATE 72 ML/MIN (>89); GLUCOSE,RANDOM 106 MG/DL (74-106); SODIUM (NA) 142 MEQ/L (136-145)
[2017-07-22 09:28] LABS: ALT (GPT) 32 U/L (10-53); CHOLESTEROL 136 MG/DL (120-200); TRIGLYCERIDES 89 MG/DL (42-150)
[2017-07-22 09:31] LABS: ALKALINE PHOSPHATASE 82 U/L (45-117); CHOLESTEROL/ HDL RATIO 2.84 RATIO; HDL CHOLESTEROL 47.8 MG/DL (40.0-60.0); LDL CHOLESTEROL 70 MG/DL (0-99); TOTAL BILIRUBIN ADULT 1.1 MG/DL (0.2-1.0); TOTAL PROTEIN 6.7 GM/DL (6.4-8.2)
[2017-07-22] MEDS ORDERED: PRAV40TA PO (11:09)
[2017-07-22] MEDS ORDERED: ASA325 PO (11:09)
--- NOTE | 2017-07-22 11:09 | HHI.DCPOC ---
Discharge Care Plan Diagnosis: (1) Bradycardia (2) Ischemic stroke Goals to Promote Your Health * To prevent worsening of your condition and complications * To maintain your health at the optimal level Directions to Meet Your Goals Take your medications as prescribed Follow your dietary instruction Follow activity as directed Keep your appointments as scheduled Take your immunizations and boosters as scheduled If your symptoms worsen call your PCP, if no PCP go to Urgent Care Center or Emergency Room Smoking is Dangerous to Your Health. Avoid second hand smoke Call the 24-hour hour crisis hotline for domestic abuse at Sue Theodore MD R1 Jul 22, 2017 11:09
[2017-07-22] MEDS: SODIUM CHLOR 0.9% 1000 ML INJ 1,000 ML IV SCH (14:26)
[2017-07-22 16:37] LABS: HEMOGLOBIN A1C 5.7 % (4.3-6.0)
--- NOTE | 2017-07-22 20:09 | HHI.FPPN ---
Subjective Remarks Patient was seen and evaluated this morning. She feels well despite a mild frontal headache. Yesterday's symptoms have completed resolved. She denies chest pain, heart palpitations, shortness of breath, nausea, vomiting, diarrhea and constipation. (Sue Theodore MD R1) Objective Vitals Vital Signs Date Time Temp Pulse Resp B/P (MAP) Pulse Ox O2 Delivery O2 Flow Rate FiO2 07/22/17 13:11 95 07/22/17 12:00 97.5 51 18 134/65 (88) 95 07/22/17 08:00 97.9 54 18 129/62 (84) 94 07/22/17 07:56 65 07/22/17 07:49 16 07/22/17 04:30 49 07/22/17 04:00 98.0 62 18 111/58 (75) 97 07/22/17 00:30 49 07/22/17 00:00 98.1 50 18 100/48 (65) 93 07/21/17 20:30 72 I/O 07/21/17 07/21/17 07/21/17 07/22/17 07/22/17 07/22/17 07:00 15:00 23:00 07:00 15:00 23:00 Intake Total 480 ml Output Total 1100 ml Balance -1100 ml 480 ml Intake Oral 480 ml Output Urine Total 1100 ml # Voids 1 1 3 2 (Sue Theodore MD R1) Result Diagram: 07/22/17 0759 07/22/17 0759 Other Results ECHO FINDINGS: LEFT VENTRICLE Normal left ventricular size and wall thickness. The left ventricular systolic function is normal with an estimated ejection fraction in the range of 60-65%. Normal wall motion. RIGHT VENTRICLE Normal right ventricular size and systolic function. LEFT ATRIUM The left atrial size is normal. RIGHT ATRIUM The right atrial size is normal. ATRIAL SEPTUM Normal atrial septal thickness without atrial level shunting by limited color doppler interrogation. AORTA The aortic root and proximal ascending aorta are normal in size on limited imaging. MITRAL VALVE Mild bileaflet mitral valve prolapse. Trace mitral valve regurgitation. AORTIC VALVE Trileaflet aortic valve. No aortic valve stenosis or regurgitation. TRICUSPID VALVE Structurally normal tricuspid valve. There is mild tricuspid valve regurgitation. The estimated pulmonary arterial pressure is 36 mmHg. PULMONARY VALVE Trivial pulmonary valve regurgitation. VESSELS The inferior vena cava is normal in size. PERICARDIUM No pericardial effusion. Imaging Last 72 hours Impressions Neck CTA 07/21/17743 Signed Impressions: Service Date/Time: July 07:50 - CONCLUSION: Negative exam. Arch and cervical vessels are patent throughout. No significant atherosclerotic disease. Salvador Nobles MD Head CTA 07/21/1744 Signed Impressions: Service Date/Time: July 07:50 - CONCLUSION: 1. Unremarkable CT angiography of the brain. Michelet Cavazos MD Head CT 07/21/17 0000 Signed Impressions: Service Date/Time: July 07:50 - CONCLUSION: 1. No evidence of hemorrhage 2. Possible tiny ischemic infarct left parietal region Michelet Cavazos MD ADDENDUM: The findings were discussed with at 0800 Michelet Cavazos MD Chest X-Ray 07/21/17 0000 Signed Impressions: Service Date/Time: July 08:18 - CONCLUSION: Hypoinflation with no acute cardiopulmonary process. Salvador Nobles MD Brain MRI 07/21/17 0000 Signed Impressions: Service Date/Time: July 17:44 - CONCLUSION: 1. Tiny subcentimeter acute to subacute infarct in the left periventricular white matter. Augusto Lundy MD Objective Remarks GENERAL: This is a well-nourished, well-developed patient, in no apparent distress. SKIN: No rashes, ecchymoses or lesions. Warm and dry. HEAD/FACE: Atraumatic. Normocephalic. No temporal or scalp tenderness. Facial asymmetry resolved. EYES: Pupils equal round and reactive. Extraocular motions intact. No scleral icterus. No injection or drainage. ENT: Nose without bleeding, purulent drainage or septal hematoma. Throat without erythema, tonsillar hypertrophy or exudate. Uvula midline. Airway patent. NECK: Trachea midline. No JVD or lymphadenopathy. Supple, nontender, no meningeal signs. CARDIOVASCULAR: Bradycardic with regular rhythm; no murmurs, gallops, or rubs. RESPIRATORY: Clear to auscultation anteriorly. No wheezes, rales, or rhonchi. GASTROINTESTINAL: Abdomen soft, non-tender, nondistended. No hepato-splenomegaly , or palpable masses. No guarding. MUSCULOSKELETAL: Extremities without clubbing, cyanosis, or edema. No joint tenderness, effusion, or edema noted. No calf tenderness. Negative Homans sign bilaterally. NEUROLOGICAL: Awake and alert. Cranial nerves II through XII intact except for facial droop noted above. Motor and sensory to light touch within normal limits. Five out of 5 muscle strength in all muscle groups. Cerebellar testing normal. Normal speech. (Sue Theodore MD R1) Urinary Catheter: No (Sue Theodore MD R1) Vascular Central Line Catheter: No (Sue Theodore MD R1) A/P Assessment and Plan Patient is a 62 year old female who presents to the ED for evaluation of right- sided upper extremity weakness. On admission, CT head reads possible tiny ischemic infarct left parietal region. Admitted for evaluation and management of TIA/Stroke. Discharge Planning Today. (Sue Theodore MD R1) Attending Attestation Patient seen, examined, and discussed with resident team. I agree with assessment and management as documented and discussed with me. Facial droop has resolved. Pt complains of mild headache and fatigue. She feels ready for discharge; she has worked with PT and OT while in the hospital. Discharge home today; rx for statin and ASA. (Savannah Sahu MD) Problem List: (1) Ischemic stroke ICD Codes: I63.9 - Cerebral infarction, unspecified Status: Acute Plan: Symptoms resolved. Discharge today. Medications: * Pravastatin 40mg PO HS. * Aspirin 325mg PO daily. 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 Clinical presentation correlates with CT head findings of possible ischemic infarct over parietal lobe. Symptoms resolved at time of admission encounter. Labs/Microbiology On admission: * WBC 7.4, Hgb 15.1, Hct 45.3, Plt Count 222. * Na 140, K 3.6. * Random glucose 115. * AST 28, ALT 38, Alk Phos 91. * Total Creatine Kinase 135. * CK-MB 1.6. Repeat 1.4. * Troponin x3 negative. * PT 10.4, INR 1.0, APTT 25.1, Fibrinogen 303. * UA: light-yellow, clear, pH 8, nitrite negative, leukocyte esterase negative. * Lipid panel pending. * Hemoglobin A1C pending. Imaging/Studies: * Chest X-ray: Hypoinflation with no acute cardiopulmonary process. * CT Brain: No evidence of hemorrhage. Possible tiny ischemic infarct left parietal region. * Head CTA: Unremarkable CT angiography of the brain. * Neck CTA: Negative exam. Arch and cervical vessels are patent throughout. No significant atherosclerotic disease. * Brain MRI: Tiny subcentimeter acute to subacute infarct in the left periventricular white matter. * EKG: SINUS BRADYCARDIA WITH SINUS ARRHYTHMIA BORDERLINE ECG. * EKG: WITH OCCASIONAL VENTRICULAR PREMATURE COMPLEXES BORDERLINE ECG. * Echo: * LEFT VENTRICLE: Normal left ventricular size and wall thickness. The left ventricular systolic function is normal with an estimated ejection fraction in the range of 60-65%. Normal wall motion. * RIGHT VENTRICLE: Normal right ventricular size and systolic function. * LEFT ATRIUM: The left atrial size is normal. * RIGHT ATRIUM: The right atrial size is normal. * ATRIAL SEPTUM: Normal atrial septal thickness without atrial level shunting by limited color Doppler interrogation. * AORTA: The aortic root and proximal ascending aorta are normal in size on limited imaging. * MITRAL VALVE: Mild bileaflet mitral valve prolapse. Trace mitral valve regurgitation. * AORTIC VALVE: Trileaflet aortic valve. No aortic valve stenosis or regurgitation. * TRICUSPID VALVE: Structurally normal tricuspid valve. There is mild tricuspid valve regurgitation. The estimated pulmonary arterial pressure is 36 mmHg. * PULMONARY VALVE: Trivial pulmonary valve regurgitation. * VESSELS: The inferior vena cava is normal in size. * PERICARDIUM; No pericardial effusion. (2) Hyperlipidemia ICD Codes: E78.5 - Hyperlipidemia, unspecified Status: Chronic Plan: Patient with history of hyperlipidemia. * See Plan for Ischemic stroke. (3) Fluid, Electrolyte, Nutrition, and Prophylaxis Status: Acute Plan: Fluid: * NS at 70 mls/hr. Electrolyte: * Monitor and replete as necessary. Nutrition: * Heart healthy diet. Prophylaxis: * SCDs. * Lovenox 40mg IV daily. (Sue Theodore MD R1) Sue Theodore MD R1 Jul 22, 2017 20:09 Savannah Sahu MD Jul 22, 2017 21:01
== END 2017-07-22 15:17 | disposition home or self-care (01) | DRG 66 ==
LOC: NEPE 07:29 → INTOOBSV 09:15 → NEDA 09:15 → N05A 11:32 → OBSVTOIN 16:19
PROVIDERS: ADMIT Family Medicine; ATTEND Family Medicine
DX: I63.542 Cerebral infarction due to unspecified occlusion or stenosis of left cerebellar artery (principal); I08.1 Rheumatic disorders of both mitral and tricuspid valves; F32.9 Major depressive disorder, single episode, unspecified; E78.5 Hyperlipidemia, unspecified; R29.810 Facial weakness; R47.81 Slurred speech; F41.9 Anxiety disorder, unspecified; Z82.49 Family history of ischemic heart disease and other diseases of the circulatory system
CPT/HCPCS: 70450; 70496; 70498; 70551; 71045; 80048; 80053; 80061; 81001; 82550; 82552; 82948; 83036; 84484; 85025; 85027; 85384; 85610; 85730; 86850; 86900; 86901; 93005; 93306; 96360; J1650; J2405; J7030; Q9967